=== PATIENT | male | born 1995 | race Caucasian/White ===

== ENCOUNTER 2019-05-17 18:40 | Emergency (ER) | payer OTHER ==
[~2019-05-17] VITALS: Ht 182.8 cm; Wt 95.3 kg
[~2019-05-17 18:40] MED LIST: CLARITIN5 MG/5 ML PO; FLONASE 0.05% 121 EA NAS; PRELONE5 MG/5 ML PO; ROBITUSSIN AC 10 MG/ PO; ZITHROMAX Z PA250 MG PO; ZYRTEC10 M1 PO
[2019-05-17] MEDS ORDERED: SEPTDS PO (19:46)
== END 2019-05-17 19:55 | disposition home or self-care (01) ==
LOC: ED 18:40
DX: S81.811A Laceration without foreign body, right lower leg, initial encounter (principal); Z88.0 Allergy status to penicillin; W22.8XXA Striking against or struck by other objects, initial encounter; Y93.39 Activity, other involving climbing, rappelling and jumping off; Y92.34 Swimming pool (public) as the place of occurrence of the external cause; Y99.8 Other external cause status